=== PATIENT | female | born 1970 | race Caucasian/White ===

== ENCOUNTER 2019-03-14 22:26 | Emergency (ER) | payer MEDICAID ==
[~2019-03-14] VITALS: Ht 170.2 cm; Wt 131.2 kg
--- NOTE | 2019-03-14 23:45 | NUR ---
PT HERE FOR RUQ PAIN. PT TO US. WILL MEDICATED WHEN SHE RETURNS
[2019-03-15] MEDS ORDERED: KETOROLAC 30 MG/1 ML IM ONE
[2019-03-15] MEDS ORDERED: ONDANSETRON ODT 4 MG PO ONE
--- NOTE | 2019-03-15 00:04 | NUR ---
PT AMBULATED TO BATHROOM FOR UA. PT TO BE MEDICATED FOR NAUSEA AND PAIN
[2019-03-15] MEDS ORDERED: KETOROLAC 30 MG/1 ML ONE (00:06)
[2019-03-15] MEDS ORDERED: ONDANSETRON ODT 4 MG ONE (00:06)
[2019-03-15 00:12] LABS: MICROSCOPIC NOT IND
[2019-03-15 00:15] LABS: CULTURE INDICATED? NO
[2019-03-15 00:21] LABS: BASOPHILS # (AUTO) 0.04 x10^3/uL (0-0.1); BASOPHILS % (AUTO) 1 % (0-1); EOSINOPHILS # (AUTO) 0.13 x10^3/uL (0-0.4); EOSINOPHILS % (AUTO) 2 % (1-7); LYMPHOCYTES # (AUTO) 2.43 x10^3/uL (1-3.4); LYMPHOCYTES % (AUTO) 33 % (22-44); MD NO; MEAN CORPUSCULAR HEMOGLOBIN 26.8 pg (27.0-34.8); MEAN CORPUSCULAR HGB CONC 32.1 g/dL (32.4-35.8); MEAN CORPUSCULAR VOLUME 83.5 fL (80-100); MEAN PLATELET VOLUME 8.3 fL (7.4-10.4); MONOCYTES # (AUTO) 0.39 x10^3/uL (0.2-0.8); MONOCYTES % (AUTO) 5 % (2-9); NEUTROPHILS # (AUTO) 4.42 x10^3/uL (1.8-6.8); NEUTROPHILS % (AUTO) 60 % (42-75); PLATELET COUNT 247 x10^3/uL (130-400); RED BLOOD COUNT 4.95 x10^6/uL (3.82-5.3); RED CELL DISTRIBUTION WIDTH 15.4 % (9.6-15.2)
[2019-03-15 00:26] VITALS: BP 135/77
[2019-03-15 00:30] LABS: ALANINE AMINOTRANSFERASE 28 U/L (12-78); ALBUMIN 3.1 g/dL (3.4-5.0); ANION GAP 6 mmol/L (5-15); CALCIUM 8.4 mg/dL (8.5-10.1); CHLORIDE 108 mmol/L (98-107); CREATININE 0.92 mg/dL (0.55-1.02)
[2019-03-15 00:35] LABS: ALKALINE PHOSPHATASE 79 U/L (45-117); BILIRUBIN,TOTAL 0.2 mg/dL (0.2-1.0); TOTAL PROTEIN 7.1 g/dL (6.4-8.2)
--- NOTE | 2019-03-15 01:17 | NUR ---
Patient given discharge instructions and they have confirmed that they understand the instructions. Patient ambulatory with steady gait.
== END 2019-03-15 01:19 ==
LOC: ED 03-15 01:13
DX: R10.11 Right upper quadrant pain (principal); R11.0 Nausea; Z87.891 Personal history of nicotine dependence
CPT/HCPCS: 36415; 76700; 80053; 81003; 83690; 84703; 85025; 93005; 96372; 99284; J1885; Q0162